=== PATIENT | male | born 1990 | race Caucasian/White ===

== ENCOUNTER 2019-03-07 13:57 | Emergency (ER) | payer OTHER ==
[2019-03-07] MEDS ORDERED: CLINDAMYCIN 600 MG/DEXTROSE 50 ML IV ONE (16:39)
[2019-03-07] MEDS ORDERED: NS 1,000 ML IV ONE (16:39)
[2019-03-07] MEDS ORDERED: DEXAMETHASONE 10 MG/ML VIAL PO ONE (16:46)
--- NOTE | 2019-03-07 16:46 | EDPHY ---
General - History Smoking Status: Light smoker Time Seen by Provider: 03/07/19 16:25 Narrative: CLINICAL IMPRESSION: Right periapical abscess, submandibular swelling ASSESSMENT/PLAN: Very pleasant 28-year-old male presents to the emergency department with 2-3 days of right lower dental pain associated with 24 hr of increased right jaw swelling extending to the submandibular region associated with trismus and difficulty rotating the head to the right due to neck pain. Patient is tolerating secretions well, clinically does not appear to have Yan's angina and has no palpable fluctuance or mass to the neck. He does have tender anterior cervical lymphadenopathy and swelling to the submandibular space. No submental swelling. He does not appear toxic or septic, he is hypertensive but remainder of vital signs are stable and he reports no fevers at home. He is tolerating secretions well. Plan for IV, labs, IV antibiotics and CT neck with contrast. Patient was signed out to Dr. Mayer at 5:00 p.m. Pending return of diagnostic studies and further management. DIFFERENTIAL DX: Differential includes but not limited to periapical abscess, gingival buccal abscess, submandibular abscess, phlegmon, Yan's angina ED PROCEDURES: See lab and/or imaging results below ED COURSE: Seen and assessed by myself at 4:30 p.m.. Tolerating secretions well. Vital signs stable, afebrile, does not appear toxic or septic. Plan for IV, labs, IV clindamycin and CT neck CHIEF COMPLAINT: Right mouth and neck swelling HPI: 28-year-old pleasant male presents to the emergency department by request of his oral surgeon for IV antibiotics and evaluation of dental abscess. Patient reports he was seen by an oral surgeon 2 days ago, told that he had a dental abscess but that swelling needed to go down before treatment could be performed. He reports he was prescribed amoxicillin but describes this pill as a "large white horse pill that he took twice daily". He went back to his oral surgeon today due to increased pain and swelling, was prescribed Augmentin which the pharmacist would not fill because they said it is the same thing that he already had, and he was sent here for IV antibiotics. Patient reports he is having difficulty opening his mouth and turning his head to the right. He vomited several times last night which she attributes to the antibiotic and taking it on an empty stomach. He does not believe he has had fever or chills. He does have a fractured tooth on the right that occurred over a year ago. He otherwise reports no significant medical history PAST MEDICAL HISTORY: No past medical history reported See triage summary and nurse notes for addition applicable history REVIEW OF SYSTEMS: A full 10 point review of systems was negative except for those mentioned in HPI. PHYSICAL EXAM: General Appearance: Alert, oriented, appropriate, cooperative, tolerating secretions well, NAD, well hydrated, non-toxic appearing, hypertensive, no hypoxia. HEENT: TMs are clear bilaterally no perforation or FB, no injection, no evidence of serous or mucopurulent otitis. Positive trismus, floor of mouth soft, obvious dental caries with significant dental decay to bilateral lower molars, more so to the right lower molars. Swelling along the right mandible extending to the submandibular space with limited range of motion to the neck, specifically with turning the head to the right. No palpable mass or fluctuance. Oropharynx clear is no erythema or exudates, no tonsillar hypertrophy or asymmetry. Neck: Supple, nontender, right submandibular pain and swelling no midline pain, FROM, no meningismus. Respiratory: There are no retractions, lungs are clear to auscultation. Cardiac: Regular rate and rhythm, no murmurs or gallops. Skin: Warm, dry, no rashes, no nodules on palpation. MEDICAL DECISION MAKING: Patient was seen independently. Secondary supervising physician at time of evaluation was: Dr. Mayer. Diagnosis: Periapical abscess, right submandibular swelling. New, requires workup Summary: See Assessment and Plan for summary of ED visit Clinical lab tests: ordered / reviewed. Independent visualization of images, tracing, or specimens: Yes / No. Discussed patient with another provider: Case signed out to Dr. Mayer at 5:00 p.m. Patient Progress: Stable at time of sign-out. (Camilo Bone) I took over care of this patient at 5:00 p.m.. We are waiting results of CT of neck with IV contrast to evaluate for possible pharyngeal/mandibular did deep space infection on the right side. 6:35 p.m., spoke with on-call radiologist Dr. Jose Armando Grady. CT scan of neck with IV contrast demonstrates right business case analyst space cellulitis with inflammatory changes likely secondary to right dental caries with edema and inflammatory changes noted around the right submandibular gland, enlarged submandibular lymph nodes noted. No evidence of drainable abscess or osteomyelitis. 6:45 p.m., the patient was re-evaluated, resting comfortably at this time. He has remained afebrile and his vital signs have remained normal. I discussed results of his CT imaging. He has had IV clindamycin as well as IV Decadron in the emergency department. He feels comfortable going home. He has follow-up with his dentist/oral surgeon scheduled for tomorrow. I will change his antibiotic to clindamycin. I will also write him for pain medication. He feels comfortable with this plan. Repeat pharyngeal exam he does have some trismus. He does have some diffuse swelling of the soft tissues involving the areas described above. No elevation of the tongue. No pharyngeal asymmetry. No stridor. No voice changes. Return to emergency department precautions were thoroughly reviewed with him. All of his questions were answered. He was discharged from the emergency department in good condition. (Lou Mayer) - Diagnostics Imaging Results: Imaging Impressions Neck CT 03/07/19 16:40 Impression: 1. Right business case analyst space cellulitis and inflammatory changes likely secondary to right dental caries with edema and phlegmonous tissue surrounding the right submandibular gland, enlarged inflamed submandibular lymph nodes, and surrounding edema also involving the medial right masseter muscle and soft tissues. 2. However no evidence of drainable abscess or definite osteomyelitis. 3. No sinusitis. Findings and recommendations discussed with Emergency Department physician, Dr. Mayer at 18:29 hour, 03/07/2019. Final report concurs with initial preliminary interpretation. - Objective Vital Signs: Initial Vital Signs Temperature (C) 36.8 C 03/07/19 14:27 Heart Rate 73 03/07/19 14:27 Respiratory Rate 16 03/07/19 14:27 Blood Pressure 142/79 H 03/07/19 14:27 O2 Sat (%) 95 03/07/19 14:27 O2 Delivery Mode Room Air Allergies/Adverse Reactions: No Known Allergies Allergy (Unverified 03/07/19 14:31) Home Medications: Medication Instructions Recorded AMOXICILLIN 03/07/19 Clindamycin HCl [Clindamycin] 300 mg PO QID #40 cap 03/07/19 Hydrocodone/APAP 5/325 [[place] 1 - 2 tab PO Q4-6PRN PRN #10 tab 03/07/19 5/325 (*)] Melatonin 03/07/19 traMADol 03/07/19 Laboratory Results: Laboratory Results 03/07/19 16:38 03/07/19 16:38 03/07/19 03/07/19 16:38 16:38 WBC 8.71 10^3/uL 10^3/uL (3.80-9.50) RBC 4.48 10^6/uL 10^6/uL (4.40-6.38) Hgb 13.8 g/dL g/dL (13.7-17.5) Hct 41.6 % % (40.0-51.0) MCV 92.9 fL fL (81.5-99.8) MCH 30.8 pg pg (27.9-34.1) MCHC 33.2 g/dL g/dL (32.4-36.7) RDW 11.9 % % (11.5-15.2) Plt Count 354 10^3/uL 10^3/uL (150-400) MPV 10.4 fL fL (8.7-11.7) Neut % (Auto) 58.0 % % (39.3-74.2) Lymph % (Auto) 29.6 % % (15.0-45.0) [place] % (Auto) 8.7 % % (4.5-13.0) Eos % (Auto) 3.0 % % (0.6-7.6) Baso % (Auto) 0.5 % % (0.3-1.7) Nucleat RBC Rel Count 0.0 % % (0.0-0.2) Absolute Neuts (auto) 5.05 10^3/uL 10^3/uL (1.70-6.50) Absolute Lymphs (auto) 2.58 10^3/uL 10^3/uL (1.00-3.00) Absolute Monos (auto) 0.76 10^3/uL 10^3/uL (0.30-0.80) Absolute Eos (auto) 0.26 10^3/uL 10^3/uL (0.03-0.40) Absolute Basos (auto) 0.04 10^3/uL 10^3/uL (0.02-0.10) Absolute Nucleated RBC 0.00 10^3/uL 10^3/uL (0-0.01) Immature Gran % 0.2 % % (0.0-1.1) Immature Gran # 0.02 10^3/uL 10^3/uL (0.00-0.10) Sodium 136 mEq/L mEq/L (135-145) Potassium 4.2 mEq/L mEq/L (3.5-5.2) Chloride 97 mEq/L mEq/L (97-110) Carbon Dioxide 28 mEq/l mEq/l (22-31) Anion Gap 11 mEq/L mEq/L (6-14) BUN 6 mg/dL L mg/dL (7-23) Creatinine 0.8 mg/dL mg/dL (0.7-1.3) Estimated GFR > 60 Glucose 80 mg/dL mg/dL (70-100) Calcium 9.6 mg/dL mg/dL (8.5-10.4) Medications Given: Discontinued Medications Dexamethasone (Decadron Injection) 12 mg PO EDNOW ONE Stop: 03/07/19 16:47 Last Admin: 03/07/19 16:53 Dose: 12 mg Clindamycin Phosphate/Dextrose (Cleocin 600 Mg (Premix)) 50 mls @ 100 mls/hr IV EDNOW ONE PRN Reason: Protocol Stop: 03/07/19 17:08 Last Admin: 03/07/19 16:54 Dose: 50 mls Sodium Chloride (Ns) 1,000 mls @ 0 mls/hr IV ONCE ONE; Wide Open PRN Reason: Protocol Stop: 03/07/19 16:40 Last Admin: 03/07/19 16:54 Dose: 1,000 mls Departure - Departure Disposition: Home, Routine, Self-Care Clinical Impression: Dental caries, Cellulitis of submandibular region Condition: Good Instructions: Dental Abscess (ED) Additional Instructions: Read and follow provided instructions. Follow-up with your dentist/oral surgeon tomorrow as discussed for re- evaluation and further management. Ibuprofen dosin mg every 6 hours with meals for the next 3 days only. Take only as needed for pain. Narcotic pain medication: 1-2 every 4-6 hours as needed for pain. Do not drive while on this medication. Take antibiotic as prescribed through entire course of treatment. Take probiotic with antibiotics. This can be obtained at the pharmacy. Ask her pharmacist about this. Return to the emergency department for worsening pain, swelling, any difficulty breathing, fever or other serious concerns. Referrals: NONE *PRIMARY CARE P,. [Primary Care Provider] - As per Instructions Prescriptions: Clindamycin HCl [Clindamycin] 300 mg PO QID #40 cap Hydrocodone/APAP 5/325 [[place] 5/325 (*)] 1 - 2 tab PO Q4-6PRN PRN #10 tab PRN Reason: Pain, Moderate
[2019-03-07] MEDS ORDERED: IOPAMIDOL (ISOVUE-300) 100 ML BTL ONE (16:51)
[2019-03-07 16:55] LABS: PLATELET COUNT 354 10^3/uL (150-400)
[2019-03-07 18:30] VITALS: BP 136/77
== END 2019-03-07 19:00 | disposition home or self-care (01) ==
DX: K02.9 Dental caries, unspecified (principal); L03.211 Cellulitis of face
CPT/HCPCS: 96365; J1100; Q9967